=== PATIENT | female | born 1990 | race Caucasian/White ===

== ENCOUNTER 2018-06-03 19:40 | Inpatient (IN) | payer MEDICAID ==
[2018-06-03 21:34] LABS: ADD MAN DIFF? NO
[2018-06-03 21:36] LABS: WHITE BLOOD COUNT 14.5 10^3/ul (4.8-10.8)
[2018-06-03 21:36] LABS: BASOPHILS % 0.3 % (0.0-2.0); HEMATOCRIT 31.1 % (37.0-47.0); HEMOGLOBIN 10.4 g/dl (12.0-16.0); LYMPHOCYTES # 0.7 10^3/ul (0.8-2.9); LYMPHOCYTES % 4.5 % (15.0-51.0); MEAN CORPUSCULAR HEMOGLOBIN 28.7 pg (29.0-33.0); MEAN CORPUSCULAR HGB CONC 33.4 g/dl (32.0-37.0); MEAN CORPUSCULAR VOLUME 85.9 fl (82.0-101.0); MEAN PLATELET VOLUME 10.2 fl (7.4-10.4); MONOCYTE # 0.8 10^3/ul (0.3-0.9); MONOCYTES % 5.2 % (0.0-11.0); NEUTROPHIL # 12.9 10^3/ul (1.6-7.5); PLATELET COUNT 180 10^3/UL (140-415); RED BLOOD COUNT 3.62 10^6/ul (4.20-5.40); RED CELL DISTRIBUTION WIDTH 13.2 % (11.5-14.5)
[2018-06-03 21:49] LABS: ALANINE AMINOTRANSFERASE 19 IU/L (13-69); ALBUMIN 3.5 g/dl (3.3-4.9); ALBUMIN/GLOBULIN RATIO 1.09; ALKALINE PHOSPHATASE 154 IU/L (42-121); ANION GAP 11 (5-13); ASPARTATE AMINO TRANSFERASE 21 IU/L (15-46); BILIRUBIN,INDIRECT 0.4 mg/dl (0-1.1); BILIRUBIN,TOTAL 0.4 mg/dl (0.2-1.3); BLOOD UREA NITROGEN 7 mg/dl (7-20); CALCIUM 8.8 mg/dl (8.4-10.2); CARBON DIOXIDE 16 mmol/L (21-31); CHLORIDE 102 mmol/L (97-110); CREATININE 0.62 mg/dl (0.44-1.00); Estimated GFR > 60 mL/min (>60); GLUCOSE 103 mg/dl (70-220); LIPASE 42 U/L (23-300); POTASSIUM 3.5 mmol/L (3.5-5.1); SODIUM 129 mmol/L (135-144); TOTAL PROTEIN 6.7 g/dl (6.1-8.1)
[2018-06-03] MEDS: SOD CHLORIDE 0.9% 1,000 ML IV (22:04)
[2018-06-03] MEDS: ACETAMINOPHEN 325 MG TAB PO (22:04)
[2018-06-03] MEDS: ALBUTEROL 0.5% (NEB) 2.5 MG/0.5 ML AMP INH (22:49)
[2018-06-03] MEDS: CEFTRIAXONE 1 GM/50 ML (PMX) 50 ML IVPB (23:02)
[2018-06-03] MEDS: AZITHROMYCIN 500MG/NS (PMX) 250 ML IVPB (23:55)
[2018-06-04] MEDS ORDERED: ACETAMINOPHEN 325 MG TAB PO (00:30)
[2018-06-04] MEDS: SOD CHLORIDE 0.9% 1,000 ML IV ×3 (02:55→16:30)
[2018-06-04] MEDS: LEVALBUTEROL (NEB) 1.25 MG/0.5 ML AMP HHN ×2 (02:58→10:51)
[2018-06-04] MEDS: DEXTROSE 5%-LR 1,000 ML IV ×2 (02:58→03:00)
[2018-06-04] MEDS ORDERED: DEXTROSE 5%-LR 1,000 ML IV (03:00)
[2018-06-04] MEDS: FERROUS SULFATE (EC) 325 MG TAB PO (09:01)
[2018-06-04] MEDS: PRENATAL VITAMIN PO (09:01)
[2018-06-04 10:09] LABS: HEMATOCRIT 28.1 % (37.0-47.0); HEMOGLOBIN 9.5 g/dl (12.0-16.0); MEAN CORPUSCULAR HEMOGLOBIN 29.5 pg (29.0-33.0); MEAN CORPUSCULAR HGB CONC 33.8 g/dl (32.0-37.0); MEAN CORPUSCULAR VOLUME 87.3 fl (82.0-101.0); PLATELET COUNT 156 10^3/UL (140-415); RED BLOOD COUNT 3.22 10^6/ul (4.20-5.40); RED CELL DISTRIBUTION WIDTH 13.3 % (11.5-14.5)
[2018-06-04 10:13] LABS: POSITIVE DIFF @See below
[2018-06-04 10:14] LABS: ADD MAN DIFF? YES
[2018-06-04 10:51] LABS: ANION GAP 7 (5-13); BLOOD UREA NITROGEN 5 mg/dl (7-20); CALCIUM 8.6 mg/dl (8.4-10.2); CARBON DIOXIDE 18 mmol/L (21-31); CHLORIDE 108 mmol/L (97-110); CREATININE 0.54 mg/dl (0.44-1.00); Estimated GFR > 60 mL/min (>60); GLUCOSE 109 mg/dl (70-220); MAGNESIUM 1.8 mg/dl (1.7-2.5); POTASSIUM 3.6 mmol/L (3.5-5.1); SODIUM 133 mmol/L (135-144)
[2018-06-04 11:13] LABS: ANISOCYTOSIS 1+ (0-0); BAND NEUTROPHILS #M 4.8 10^3/ul (0.0-0.6); BAND NEUTROPHILS % (M) 30 % (0-4); LYMPHOCYTES #M 0.6 10^3/ul (0.8-2.9); LYMPHOCYTES % (M) 4 % (15-51); MONOCYTE #M 0.6 10^3/ul (0.3-0.9); MONOCYTES % (M) 4 % (0-11); PLATELET ESTIMATE NORMAL; POLYCHROMASIA 2+ (0-0); ROULEAU 1+ (0-0); SEG NEUT #M 10.7 10^3/ul (1.6-7.5); SEGMENTED NEUTROPHILS (M) % 62 % (39-77); SMUDGE%M 1 % (0-0)
[2018-06-04] MEDS: CEFTRIAXONE 1 GM/50 ML (PMX) 50 ML IVPB (23:04)
[2018-06-04] MEDS: AZITHROMYCIN 500MG/NS (PMX) 250 ML IVPB (23:43)
[2018-06-05] MEDS: SOD CHLORIDE 0.9% 1,000 ML IV ×2 (04:47→08:30)
[2018-06-05 06:38] LABS: ADD MAN DIFF? NO
[2018-06-05 06:41] LABS: WHITE BLOOD COUNT 15.3 10^3/ul (4.8-10.8)
[2018-06-05 06:41] LABS: BASOPHILS % 0.3 % (0.0-2.0); EOSINOPHILS % 0.1 % (0.0-7.0); HEMATOCRIT 26.8 % (37.0-47.0); HEMOGLOBIN 8.9 g/dl (12.0-16.0); LYMPHOCYTES # 1.3 10^3/ul (0.8-2.9); LYMPHOCYTES % 8.6 % (15.0-51.0); MEAN CORPUSCULAR HEMOGLOBIN 29.4 pg (29.0-33.0); MEAN CORPUSCULAR HGB CONC 33.2 g/dl (32.0-37.0); MEAN CORPUSCULAR VOLUME 88.4 fl (82.0-101.0); MEAN PLATELET VOLUME 9.8 fl (7.4-10.4); MONOCYTE # 0.6 10^3/ul (0.3-0.9); MONOCYTES % 4.2 % (0.0-11.0); NEUTROPHIL # 13.1 10^3/ul (1.6-7.5); NEUTROPHILS % 85.3 % (39.0-77.0); PLATELET COUNT 163 10^3/UL (140-415); RED BLOOD COUNT 3.03 10^6/ul (4.20-5.40); RED CELL DISTRIBUTION WIDTH 13.7 % (11.5-14.5)
[2018-06-05 07:03] LABS: ANION GAP 8 (5-13); BLOOD UREA NITROGEN 5 mg/dl (7-20); CALCIUM 8.2 mg/dl (8.4-10.2); CARBON DIOXIDE 18 mmol/L (21-31); CHLORIDE 113 mmol/L (97-110); Estimated GFR > 60 mL/min (>60); GLUCOSE 85 mg/dl (70-220); MAGNESIUM 1.9 mg/dl (1.7-2.5); PHOSPHORUS 2.7 mg/dl (2.5-4.9); POTASSIUM 3.3 mmol/L (3.5-5.1); SODIUM 139 mmol/L (135-144)
[2018-06-05] MEDS: POTASSIUM CHLORIDE 20 MEQ POWDER FOR ORAL SOLN PO (09:19)
[2018-06-05] MEDS: PRENATAL VITAMIN PO (09:19)
[2018-06-05] MEDS: FERROUS SULFATE (EC) 325 MG TAB PO (09:19)
[2018-06-05] MEDS ORDERED: predniSONE 20 MG TAB PO (13:30)
== END 2018-06-05 11:30 | disposition home or self-care (01) | DRG 831 ==
LOC: PP1 23:18 → FTE 19:40
DX: O98.813 Other maternal infectious and parasitic diseases complicating pregnancy, third trimester (principal); A41.9 Sepsis, unspecified organism; J18.9 Pneumonia, unspecified organism; E87.1 Hypo-osmolality and hyponatremia; E86.0 Dehydration; J20.9 Acute bronchitis, unspecified; R09.02 Hypoxemia; Z3A.31 31 weeks gestation of pregnancy
CPT/HCPCS: 36415; 71045; 76705; 76815; 76818; 80048; 80053; 81001; 83605; 83690; 83735; 84100; 85025; 87040; 87086; 87400; 94640; 94644; 94664; 96374; 99285-25

== ENCOUNTER 2018-08-04 07:59 | Inpatient (IN) | payer MEDICAID ==
[2018-08-04] MEDS ORDERED: LACTATED RINGER'S 1,000 ML IV (08:33)
[2018-08-04] MEDS: LACTATED RINGER'S 1,000 ML IV ×4 (08:47→18:36)
[2018-08-04] MEDS: AMPICILLIN 2 GM/NS (PMX) 100 ML IV (09:00)
[2018-08-04] MEDS ORDERED: MINERAL OIL LIGHT 10 ML VIAL TOP (09:00)
[2018-08-04] MEDS ORDERED: IBUPROFEN 600 MG TAB PO (09:00)
[2018-08-04] MEDS ORDERED: LIDOCAINE 1% (MPF) 30 ML INJ INJ (09:00)
[2018-08-04] MEDS ORDERED: BUTORPHANOL 2 MG INJ IV (09:00)
[2018-08-04 09:17] LABS: ADD MAN DIFF? NO
[2018-08-04 09:19] LABS: WHITE BLOOD COUNT 10.9 10^3/ul (4.8-10.8)
[2018-08-04 09:19] LABS: BASOPHILS % 0.3 % (0.0-2.0); EOSINOPHILS % 0.4 % (0.0-7.0); HEMATOCRIT 28.3 % (37.0-47.0); HEMOGLOBIN 9.2 g/dl (12.0-16.0); LYMPHOCYTES # 1.8 10^3/ul (0.8-2.9); LYMPHOCYTES % 16.3 % (15.0-51.0); MEAN CORPUSCULAR HEMOGLOBIN 26.7 pg (29.0-33.0); MEAN CORPUSCULAR HGB CONC 32.5 g/dl (32.0-37.0); MONOCYTE # 0.6 10^3/ul (0.3-0.9); MONOCYTES % 5.2 % (0.0-11.0); NEUTROPHIL # 8.3 10^3/ul (1.6-7.5); NEUTROPHILS % 76.5 % (39.0-77.0); PLATELET COUNT 187 10^3/UL (140-415); RED BLOOD COUNT 3.45 10^6/ul (4.20-5.40); RED CELL DISTRIBUTION WIDTH 14.3 % (11.5-14.5)
[2018-08-04] MEDS ORDERED: NALOXONE (0.4 MG/ML) INJ IV (09:30)
[2018-08-04 09:36] LABS: INR 0.89; PARTIAL THROMBOPLASTIN TIME 22.7 Sec (23.0-35.0); PROTIME 12.1 Sec (11.9-14.9); PT RATIO 0.9
[2018-08-04] MEDS ORDERED: OXYTOCIN 30 UNITS/LR 500 ML IV (12:00)
[2018-08-04] MEDS: AMPICILLIN 1 GM/NS (PMX) 50 ML IV ×3 (12:30→22:41)
[2018-08-04] MEDS: OXYTOCIN 30 UNITS/LR 500 ML IV ×3 (12:31→22:43)
[2018-08-04 15:23] LABS: HEPATITIS B SURFACE ANTIGEN NEGATIVE (NEGATIVE)
[2018-08-04] MEDS: FENTAnyl 2MCG/ML-ROPIV 0.2% 100 ML BAG EPI (17:43)
[2018-08-04] MEDS ORDERED: ONDANSETRON 4 MG INJ (18:30)
[2018-08-04] MEDS: ONDANSETRON 4 MG INJ IV (18:41)
[2018-08-04 22:19] LABS: RAPID PLASMA REAGIN NONREACTIVE (NR)
[2018-08-05] MEDS ORDERED: METHYLERGONOVINE 0.2 MG INJ IM (01:00)
[2018-08-05] MEDS ORDERED: BENZOCAINE 20% 56 ML SPRAY TOP (01:00)
[2018-08-05] MEDS ORDERED: OXYCODONE/ASPIRIN (4.88/325) TAB PO ×2 (01:00)
[2018-08-05] MEDS ORDERED: MISOPROSTOL 200 MCG TAB PR (01:00)
[2018-08-05] MEDS ORDERED: WITCH HAZEL/GLYCERIN PAD PR (01:00)
[2018-08-05] MEDS ORDERED: ZOLPIDEM 5 MG TAB PO (01:00)
[2018-08-05] MEDS ORDERED: CARBOPROST 250 MCG INJ IM (01:00)
[2018-08-05] MEDS: OXYTOCIN 30 UNITS/LR 500 ML IV (03:27)
[2018-08-05] MEDS: IBUPROFEN 600 MG TAB PO ×4 (05:49→23:33)
[2018-08-05 08:46] LABS: ADD MAN DIFF? NO
[2018-08-05] MEDS: SENNA/DOCUSATE NA (8.6MG/50MG) TAB PO ×2 (08:54→21:02)
[2018-08-05 08:55] LABS: WHITE BLOOD COUNT 18.5 10^3/ul (4.8-10.8)
[2018-08-05 08:55] LABS: BASOPHIL # 0.1 10^3/ul (0.0-0.1); BASOPHILS % 0.3 % (0.0-2.0); EOSINOPHILS % 0.2 % (0.0-7.0); HEMATOCRIT 29.4 % (37.0-47.0); HEMOGLOBIN 9.4 g/dl (12.0-16.0); LYMPHOCYTES # 2.4 10^3/ul (0.8-2.9); LYMPHOCYTES % 13.1 % (15.0-51.0); MEAN CORPUSCULAR HEMOGLOBIN 26.7 pg (29.0-33.0); MEAN CORPUSCULAR VOLUME 83.5 fl (82.0-101.0); MEAN PLATELET VOLUME 10.9 fl (7.4-10.4); MONOCYTE # 0.9 10^3/ul (0.3-0.9); NEUTROPHIL # 14.9 10^3/ul (1.6-7.5); NEUTROPHILS % 80.7 % (39.0-77.0); PLATELET COUNT 199 10^3/UL (140-415); RED BLOOD COUNT 3.52 10^6/ul (4.20-5.40); RED CELL DISTRIBUTION WIDTH 14.6 % (11.5-14.5)
[2018-08-05] MEDS: LANOLIN HPA 1 PKT TOP (21:08)
[2018-08-06] MEDS: IBUPROFEN 600 MG TAB PO ×2 (05:37→11:49)
[2018-08-06 08:29] LABS: ADD MAN DIFF? NO
[2018-08-06 08:35] LABS: BASOPHILS % 0.2 % (0.0-2.0); EOSINOPHILS # 0.1 10^3/ul (0.0-0.5); EOSINOPHILS % 0.7 % (0.0-7.0); HEMOGLOBIN 9.2 g/dl (12.0-16.0); LYMPHOCYTES # 2.4 10^3/ul (0.8-2.9); LYMPHOCYTES % 19.3 % (15.0-51.0); MEAN CORPUSCULAR HEMOGLOBIN 26.5 pg (29.0-33.0); MEAN CORPUSCULAR HGB CONC 31.7 g/dl (32.0-37.0); MEAN CORPUSCULAR VOLUME 83.6 fl (82.0-101.0); MEAN PLATELET VOLUME 10.6 fl (7.4-10.4); MONOCYTE # 0.6 10^3/ul (0.3-0.9); MONOCYTES % 4.4 % (0.0-11.0); NEUTROPHIL # 9.4 10^3/ul (1.6-7.5); NEUTROPHILS % 74.4 % (39.0-77.0); PLATELET COUNT 194 10^3/UL (140-415); RED BLOOD COUNT 3.47 10^6/ul (4.20-5.40); RED CELL DISTRIBUTION WIDTH 14.9 % (11.5-14.5)
[2018-08-06 08:35] LABS: WHITE BLOOD COUNT 12.6 10^3/ul (4.8-10.8)
[2018-08-06] MEDS: SENNA/DOCUSATE NA (8.6MG/50MG) TAB PO (09:22)
[2018-08-06] MEDS: DIPHTH/TET/ACEL PERTUSS (ADULT) 0.5 ML VIAL IM* (10:04)
== END 2018-08-06 13:53 | disposition home or self-care (01) | DRG 807 ==
LOC: OBT 07:59 → PP1 08-05 00:15 → L-D 07:59 → OBT 08:24 → L-D 08:20
PROVIDERS: Obstetrics & Gynecology
PROC: 10E0XZZ Delivery of Products of Conception, External Approach (ICD-10-PCS; principal; 2018-08-04)
DX: O99.02 Anemia complicating childbirth (principal); Z37.0 Single live birth; D64.9 Anemia, unspecified; Z3A.39 39 weeks gestation of pregnancy; Z23 Encounter for immunization
CPT/HCPCS: 62322; 76815; 85025; 85610; 85730; 86592; 86900; 86901; 87340; 90715; 99464